=== PATIENT | female | born 1930 | race African-American/Black ===

== ENCOUNTER → 2016-12-22 13:55 | Outpatient (CLI) | payer MEDICARE ==
[2010-06-11 09:23] VITALS: BMI 24.6
== END | disposition home or self-care (01) ==
LOC: D.US 13:55
DX: R60.0 Localized edema (principal)

== ENCOUNTER → 2016-12-23 12:12 | Outpatient (CLI) | payer MEDICARE ==
[2010-06-11 09:23] VITALS: BMI 24.6
[2016-12-24 12:16] LABS: ACLA - IGG AB <9 GPL U/mL (0-14); ACLA - IGM AB <9 MPL U/mL (0-12)
[2016-12-25 08:25] LABS: PROTEIN S - FREE 61 % (57-157); PROTEIN S - TOTAL 125 % (60-150)
[2016-12-25 13:19] LABS: LUPUS - INTERPRETATION Comment: (()); LUPUS - THROMBIN TIME 18.1 sec (0.0-20.9); LUPUS - dRVVT 35.2 sec (0.0-44.0); PTT-LA 33.6 sec (0.0-40.6)
[2016-12-26 13:10] LABS: PROTEIN C - ANTIGEN 89 % (60-150); PROTEIN C - FUNCTIONAL 106 % (73-180)
[2016-12-28 17:10] LABS: FACTOR II DNA ANALYSIS Negative (())
== END | disposition home or self-care (01) ==
LOC: D.LABREF 12:12
PROVIDERS: Internal Medicine Pulmonary Disease
DX: J44.9 Chronic obstructive pulmonary disease, unspecified (principal)

== ENCOUNTER → 2016-12-23 17:53 | Outpatient (CLI) | payer MEDICARE ==
[2010-06-11 09:23] VITALS: BMI 24.6
== END | disposition home or self-care (01) ==
LOC: D.LABREF 17:53
DX: J44.9 Chronic obstructive pulmonary disease, unspecified (principal); J45.909 Unspecified asthma, uncomplicated

== ENCOUNTER → 2017-07-14 12:37 | Outpatient (CLI) | payer MEDICARE ==
[2010-06-11 09:23] VITALS: BMI 24.6
== END | disposition home or self-care (01) ==
LOC: D.US 12:37
DX: I82.402 Acute embolism and thrombosis of unspecified deep veins of left lower extremity (principal)

== ENCOUNTER → 2017-10-29 08:55 | Outpatient (CLI) | payer MEDICARE ==
[2010-06-11 09:23] VITALS: BMI 24.6
== END | disposition home or self-care (01) ==
LOC: D.RT 08:55
DX: I82.402 Acute embolism and thrombosis of unspecified deep veins of left lower extremity (principal); J44.9 Chronic obstructive pulmonary disease, unspecified